=== PATIENT | male | born 2000 ===

== ENCOUNTER → 2025-03-08 10:42 | Outpatient (REF) | payer OTHER, SELFPAY ==
[2025-03-08 12:19] LABS: Rubella Positive
[2025-03-08 13:14] LABS: Hepatitis B Surface Antibody Positive
[2025-03-10 13:42] LABS: Quantiferon Mitogen minus NIL 9.93 IU/mL; Quantiferon NIL 0.07 IU/mL; Quantiferon TB Gold Plus Negative (Negative)
== END ==
LOC: REG 10:42
PROVIDERS: ATTENDING PHYSICIAN Nurse Practitioner Family
DX: Z23 Encounter for immunization (principal)
CPT/HCPCS: 36415; 86480; 86706; 86735; 86762; 86765; 86787